=== PATIENT | female | born 1995 | race Caucasian/White ===

== ENCOUNTER 2018-02-26 23:03 | Emergency (ER) | payer OTHER ==
[2018-02-26 23:16] VITALS: BP 112/69; PULSE 78; TEMP 98.2; BMI 29.0
[2018-02-27] MEDS ORDERED: carBAMazepine 200 MG TABLET PO ONE (00:10)
--- NOTE | 2018-02-27 00:10 | PDOC ---
History of Present Illness - General Chief Complaint: Headache Stated Complaint: Headache Time Seen by Provider: 02/26/18 23:06 History Source: Patient Exam Limitations: No Limitations - History of Present Illness Initial Comments: 02/27/18 00:12 The patient is a 23F with a PMH of recently diagnosed lupus (08/2017) who presents to the ER after having a shaking episode while at her in-laws. The patient states that she felt a headache and had whole body shaking without LOC, tongue biting, disorientation after the episode, and bowel/bladder incontinence. She states that she's had 1 episode every 1-2 months of this but it was localized to 1 limb. She has never had an episode that involved her entire body. She denies CP, SOB, fever, chills, nausea, vomiting, numbness, tingling, or weakness. Past History - Past Medical History Allergies/Adverse Reactions: Allergies Allergy/AdvReac Type Severity Reaction Status Date / Time No Known Allergies Allergy Verified 02/27/18 00:32 Home Medications: Ambulatory Orders Apixaban [Eliquis] 2.5 mg PO DAILY 02/27/18 Carbamazepine [Tegretol -] 200 mg PO BID #14 tablet 02/27/18 Carbamazepine [Tegretol -] 200 mg PO BID #14 tablet 02/27/18 Folic Acid 1 mg PO DAILY 02/27/18 predniSONE [Deltasone -] 10 mg PO DAILY 02/27/18 Anemia: Yes COPD: No Other medical history: Lupus - Suicide/Smoking/Psychosocial Hx Smoking History: Never smoked Have you smoked in the past 12 months: No Information on smoking cessation initiated: No Hx Alcohol Use: No Drug/Substance Use Hx: No Substance Use Type: None Review of Systems - Review of Systems Able to Perform ROS?: Yes Comments:: 02/27/18 00:16 GENERAL/CONSTITUTIONAL: No fever or chills. No weakness. HEAD, EYES, EARS, NOSE AND THROAT: No change in vision. No ear pain or discharge. No sore throat. CARDIOVASCULAR: No chest pain, palpitations, or lightheadedness. RESPIRATORY: No cough, wheezing, shortness of breath, or hemoptysis. GASTROINTESTINAL: No nausea, vomiting, diarrhea, constipation, or abdominal pain. GENITOURINARY: No dysuria, frequency, hematuria, or change in urination. MUSCULOSKELETAL: No joint or muscle swelling or pain. No neck or back pain. SKIN: No rash or lesions. NEUROLOGIC: Positive for shaking episode. No headache, numbness, tingling, weakness, loss of consciousness, or change in strength/sensation. ENDOCRINE: No increased thirst. No abnormal weight change. HEMATOLOGIC/LYMPHATIC: No anemia, easy bleeding, or history of blood clots. ALLERGIC/IMMUNOLOGIC: No hives or skin allergy. Is the patient limited [place] proficient: No *Physical Exam - Vital Signs Last Vital Signs Temp Pulse Resp BP Pulse Ox 98.2 F 78 19 112/69 100 02/26/18 23:05 02/26/18 23:05 02/26/18 23:05 02/26/18 23:05 02/26/18 23:05 - Physical Exam Comments: 02/27/18 00:16 GENERAL: Well developed, well nourished. Awake and alert. No acute distress. HEENT: Normocephalic, atraumatic. Hearing grossly normal. Moist mucous membranes. PERRLA, EOMI. No conjunctival pallor. Sclera are non-icteric. Oropharynx is clear. NECK: Supple. Full ROM. No JVD. CARDIOVASCULAR: Regular rate and rhythm. No murmurs, rubs, or gallops. PULMONARY: No evidence of respiratory distress. Lungs clear to auscultation bilaterally. No wheezing, rales or rhonchi. ABDOMINAL: Soft. Non-tender. Non-distended. No rebound or guarding. GENITOURINARY: No CVA tenderness bilaterally. MUSCULOSKELETAL: Normal range of motion at all joints. No bony deformities or tenderness. EXTREMITIES: No cyanosis. No clubbing. No edema. No calf tenderness or swelling. SKIN: Warm and dry. Normal capillary refill. No rashes. No jaundice. NEUROLOGICAL: Alert, awake, appropriate. Cranial nerves 2-12 intact. No deficits to light touch and temperature in face, upper extremities and lower extremities. 5/5 strength in deltoids, biceps, triceps, quadriceps, hamstrings, and gastrocnemius. Finger to nose normal bilaterally. Normal speech. Gait is normal without ataxia. PSYCHIATRIC: Cooperative. Good eye contact. Appropriate mood and affect. ED Treatment Course - LABORATORY CBC & Chemistry Diagram: 02/26/18 23:40 02/26/18 23:40 Medical Decision Making - Medical Decision Making 02/27/18 00:00 The patient is a 23F with a PMH of lupus who presents to the ER after having an episode of shaking. She states that she has had previous episodes of shaking but none have involved her entire body. There is question if this is a partial seizure involving her entire body. Case d/w neurology, Dr. Small, who recommends starting the patient on Tegretol 200 bid for 7 days and he will f/u with her. Pending labs. 02/27/18 01:02 CBC, CMP WNL except for mildly increased AST and alk phos and increased Tbili likely 2/2 to pt's previous hemolytic anemia. Will d/c home with neurology f/u. *DC/Admit/Observation/Transfer Diagnosis at time of Disposition: Shaking - Discharge Dispostion Disposition: HOME Condition at time of disposition: Stable Decision to Admit order: No - Prescriptions Prescriptions: Carbamazepine [Tegretol -] 200 mg PO BID #14 tablet Carbamazepine [Tegretol -] 200 mg PO BID #14 tablet - Referrals Referrals: Leny Muniz [Primary Care Provider] - Alise Small MD [Staff Physician] - - Patient Instructions Printed Discharge Instructions: Seizure Disorder -- Adult Additional Instructions: Please follow up with your primary care physician in 2-[address] Small in the morning to set up an appointment for Tuesday. 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 Please return to the ER if you have any signs or symptoms of chest pain, shortness of breath, uncontrollable fever, chills, nausea, vomiting, numbness, tingling, or weakness in any part of your body, changes in vision, or slurred speech. Please return to the ER if symptoms persist, worsen, or new symptoms arise. - Post Discharge Activity
[2018-02-27] MEDS ORDERED: carBAMazepine 200 MG TABLET ONE (00:18)
[2018-02-27 00:19] LABS: EOS % 4.2 % (0-4.5); HEMATOCRIT 34.9 % (32.4-45.2); HEMOGLOBIN 12.1 GM/dL (10.7-15.3); LYMPH % 35.8 % (8-40); MCHC 34.6 g/dl (32.0-36.0); MEAN CELL VOLUME 103.9 fl (80-96); MEAN PLT VOLUME 7.9 fl (7.5-11.1); MONO % 9.5 % (3.8-10.2); NEUT % 49.5 % (42.8-82.8); PLATELET COUNT 592 K/MM3 (134-434); RBC 3.36 M/mm3 (3.60-5.2); RDW 13.2 % (11.6-15.6); WHITE BLOOD COUNT 8.7 K/mm3 (4.0-10.0)
--- NOTE | 2018-02-27 00:25 | PDOC ---
Attending Attestation - Resident Resident Name: Merrill Lind - ED Attending Attestation I have performed the following: I have examined & evaluated the patient, The case was reviewed & discussed with the resident, I agree w/resident's findings & plan <Loida Hamilton - Last Filed: 02/27/18 00:25> - HPI HPI: 02/27/18 00:42 Patient is a 23 year old female with a significant past medical history of lupus (08/2017), who presents to the ED with complaints of general body shaking that occurred just prior to ED arrival. Patient reports experiencing similar symptoms, stating she has experienced 1 episode of shaking that was localized to one body part every 2 months. She reports experiencing full body shaking for multiple minutes, prompting her to call EMS to be brought to the ED for further evaluation out of concern for herself. Denies chest pain, Sob. Denies loss of consciousness, bladder incontinence, bowel incontinence. Denies head trauma, vision changes. Denies contact with sick individuals, out of state travelling. Denies any other symptoms. Allergies: None Social history: No smoking. No alcohol. No illicit drugs. Surgical history: None PMD: Dr. Leny Muniz - Physicial Exam PE: 02/27/18 01:12 GENERAL: Awake, alert, and fully oriented, in no acute distress HEAD: No signs of trauma EYES: PERRLA, EOMI, sclera anicteric, conjunctiva clear ENT: Auricles normal inspection, hearing grossly normal, nares patent, oropharynx clear without exudates. Moist mucosa NECK: Normal ROM, supple, no lymphadenopathy, JVD, or masses LUNGS: Breath sounds equal, clear to auscultation bilaterally. No wheezes, and no crackles HEART: Regular rate and rhythm, normal S1 and S2, no murmurs, rubs or gallops ABDOMEN: Soft, nontender, normoactive bowel sounds. No guarding, no rebound. No masses EXTREMITIES: Normal range of motion, no edema. No clubbing or cyanosis. No cords, erythema, or tenderness NEUROLOGICAL: Cranial nerves II through XII grossly intact. Normal speech, normal gait SKIN: Warm, Dry, normal turgor, no rashes or lesions noted. <Andrez White - Last Filed: 02/27/18 01:12> Heart Score/ECG Review - Pony Pony: Normal - P and NH Delta Wave(s) Present: No WPW: No - QRS Poor R Wave Progression: No Q Wave Present: No - ST and T Early Repolarization: No Non Specific ST-T Wave changes: No <Loida Hamilton - Last Filed: 02/27/18 00:25>
[2018-02-27 00:45] LABS: URINE APPEARANCE CLEAR; URINE BILIRUBIN NEGATIVE (<2.0 mg/dL); URINE COLOR YELLOW; URINE GLUCOSE (UA) NEGATIVE (NEGATIVE); URINE KETONE NEGATIVE (NEGATIVE); URINE LEUK ESTERASE NEGATIVE (NEGATIVE); URINE NITRITE NEGATIVE (NEGATIVE); URINE PROTEIN NEGATIVE (NEGATIVE); URINE UROBILINOGEN NEGATIVE mg/dL (0.2-1.0)
[2018-02-27 00:51] LABS: ALBUMIN 4.2 g/dl (3.4-5.0); ANION GAP 12 (8-16); BLOOD UREA NITROGEN 12 mg/dL (7-18); CALCIUM 8.9 mg/dL (8.5-10.1); CHLORIDE 110 mmol/L (98-107); CO2 20 mmol/L (21-32); CREATININE 0.4 mg/dL (0.55-1.02); GLUCOSE,RANDOM 84 mg/dL (74-106); SGOT/AST 44 U/L (15-37); SGPT/ALT 60 U/L (12-78); SODIUM 142 mmol/L (136-145)
[2018-02-27 00:56] LABS: ALK PHOS 137 U/L (45-117); BILIRUBIN,TOTAL 1.6 mg/dL (0.2-1.0); TOT PROT 7.5 g/dl (6.4-8.2)
[2018-02-27 00:59] LABS: POTASSIUM 4.6 mmol/L (3.5-5.1)
--- NOTE | 2018-02-27 13:24 | EKG ---
Test Reason : Blood Pressure : / mmHG Vent. Rate : 069 BPM Atrial Rate : 069 BPM P-R Int : 186 ms QRS Dur : 086 ms QT Int : 404 ms P-R-T Axes : 041 056 040 degrees QTc Int : 432 ms NORMAL SINUS RHYTHM NORMAL ECG NO PREVIOUS ECGS AVAILABLE Confirmed by JAVIER IQBAL MD ([id number]) on 02/27/2018 1:24:18 PM Referred By: Confirmed By:JAVIER IQBAL MD
== END 2018-02-27 01:28 | disposition home or self-care (01) ==
LOC: JER 23:03
DX: R25.1 Tremor, unspecified (principal); D64.9 Anemia, unspecified; M32.9 Systemic lupus erythematosus, unspecified
CPT/HCPCS: 36415; 80053; 81003; 82550; 84703; 85025; 93005; 93010; 99282-25